=== PATIENT | male | born 2005 | race Caucasian/White ===

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

== ENCOUNTER 2023-04-09 01:22 | Emergency (ER) | payer MEDICAID, SELFPAY ==
[2023-04-09 01:23] VITALS: BP 132/84; PULSE 70; RESP 18; TEMP 36.6; O2SAT 99; BMI 22.1
[2023-04-09 01:28] VITALS: BP 132/23; PULSE 88; O2SAT 97
[2023-04-09 02:00] VITALS: BP 127/70
--- NOTE | 2023-04-09 02:28 | HMH.EDGENADL ---
Discharge Plan Disposition Patient Disposition: Home, Self-Care Prescriptions Prescriptions: No Action hydroxyzine pamoate [Vistaril] 25 mg capsule 25 mg PO TID PRN (Reason: .) melatonin 1 mg tablet 5 mg PO HS PRN (Reason: Sleep) montelukast [Singulair] 10 mg tablet 5 mg PO QPM anastrozole 1 mg tablet 1 mg PO ONCE HS clonidine HCl 0.2 mg tablet 0.2 mg PO DAILY olanzapine [Zyprexa] 20 mg tablet 20 mg PO BID levocetirizine 5 mg tablet 5 mg PO DAILY Patient Comments: TAKE 1 TABLET BY MOUTH ONCE DAILY Norditropin FlexPro 30 mg/3 mL (10 mg/mL) pen injector 4 mg SQ divalproex 500 mg tablet extended release 24 hr 500 mg PO Vyvanse 40 mg capsule 40 mg PO valacyclovir [Valtrex] 1 gram tablet 1,000 mg PO Q8H Qty: 30 1RF prednisone 20 mg tablet 20 mg PO BID Qty: 10 0RF Rx Instructions: administer with food or milk Referrals Follow up/Referrals: Migue Knott APRN [Primary Care Provider] - See instructions Activity Restrictions/Add. Instructions Additional Instructions/Restrictions: I think your symptoms are most consistent with cluster headaches. Please follow-up with your eye doctor and with your primary care provider. Please take Tylenol and ibuprofen as needed for pain. Please return to the emergency department if you develop any new or worsening symptoms or become concerned for your health. Clinical Impressions Clinical Impression: Cluster headache Qualifiers: Headache chronicity pattern: unspecified pattern Intractability: not intractable Qualified Code(s): G44.009 - Cluster headache syndrome, unspecified, not intractable Discharge ED Provider: John Paul Christianson General Adult HPI General Chief complaint: Eye Problems Stated complaint: left eye pain Time Seen by Provider: 04/09/23 01:27 Mode of Arrival: Ambulatory Source of Information: Patient and Parent(s) Limitations: No Limitations Description of Symptoms (Recalled from ER Triage Doc. by RN): Patient started having left eye pain as he was trying to go to sleep tonight. No known injury. History of Present Illness HPI narrative: 17-year-old male, history of Tourette's, ODD, ADHD presents with cute onset left eye/facial pain. He reports it happened approximately an hour prior to arrival. No reported injury. He reports his vision is normal. He reports that his eye was very teary and had a runny nose and had severe sharp pain at that time. He reports that he has had unilateral eye/face pain in the past that lasted for minutes to hours. No recent fever or illness. Related Data Home Medications Medication Instructions Recorded Confirmed hydroxyzine pamoate 25 mg capsule 25 mg PO TID PRN . 08/15/18 02/09/23 (Vistaril) melatonin 1 mg tablet 5 mg PO HS PRN Sleep 09/06/18 02/09/23 anastrozole 1 mg tablet 1 mg PO ONCE HS . 01/10/19 02/09/23 clonidine HCl 0.2 mg tablet 0.2 mg PO DAILY . 10/07/20 02/09/23 montelukast 10 mg tablet 5 mg PO QPM . 10/07/20 02/09/23 (Singulair) olanzapine 20 mg tablet (Zyprexa) 20 mg PO BID Depression 10/07/20 02/09/23 levocetirizine 5 mg tablet 5 mg PO DAILY 05/25/22 02/09/23 somatropin 30 mg/3 mL (10 mg/mL) 4 mg SQ 05/25/22 02/09/23 subcutaneous pen injector (Norditropin FlexPro) divalproex 500 mg tablet,extended 500 mg PO 09/20/22 02/09/23 release 24 hr lisdexamfetamine 40 mg capsule 40 mg PO 09/20/22 02/09/23 (Vyvanse) Previous Rx's Medication Instructions Recorded prednisone 20 mg tablet 20 mg PO BID #10 tabs 02/09/23 valacyclovir 1 gram tablet 1,000 mg PO Q8H #30 tabs 02/09/23 (Valtrex) Allergies Allergy/AdvReac Type Severity Reaction Status Date / Time zolpidem [From Ambien] AdvReac Intermediate Hallucinati Verified 02/09/23 13:02 [facility] Disclaimer: The information contained in this section may have been updated after the patient was seen, as this information can be updated by other users.
[2023-04-09 02:30] VITALS: BP 149/97; PULSE 77; O2SAT 99
[2023-04-09 03:00] VITALS: BP 136/59; PULSE 74; O2SAT 100
[2023-04-09 03:55] VITALS: BP 120/72; PULSE 66; RESP 16; TEMP 36.5; O2SAT 100
== END 2023-04-09 03:56 | disposition home or self-care (01) ==
PROVIDERS: Emergency Provider Emergency Medicine; PCP Nurse Practitioner Family
DX: H57.12 Ocular pain, left eye (principal); R51.9 Headache, unspecified
CPT/HCPCS: 96372; 99283

== ENCOUNTER 2023-07-12 10:28 | Emergency (ER) | payer MEDICAID, SELFPAY ==
[2023-07-12 10:35] VITALS: BP 109/81; PULSE 70; RESP 19; TEMP 36.9; O2SAT 100; BMI 25.4
--- NOTE | 2023-07-12 10:47 | ED_ITS ---
Discharge Plan Disposition Patient Disposition: Home, Self-Care Condition: Good Prescriptions Prescriptions: New ibuprofen [IBU] 400 mg tablet 400 mg PO Q6HP PRN (Reason: Moderate Pain) Qty: 30 0RF No Action hydroxyzine pamoate [Vistaril] 25 mg capsule 25 mg PO TID PRN (Reason: .) melatonin 1 mg tablet 5 mg PO HS PRN (Reason: Sleep) montelukast [Singulair] 10 mg tablet 5 mg PO QPM anastrozole 1 mg tablet 1 mg PO ONCE HS clonidine HCl 0.2 mg tablet 0.2 mg PO DAILY olanzapine [Zyprexa] 20 mg tablet 20 mg PO BID levocetirizine 5 mg tablet 5 mg PO DAILY Patient Comments: TAKE 1 TABLET BY MOUTH ONCE DAILY Norditropin FlexPro 30 mg/3 mL (10 mg/mL) pen injector 4 mg SQ divalproex 500 mg tablet extended release 24 hr 500 mg PO Vyvanse 40 mg capsule 40 mg PO valacyclovir [Valtrex] 1 gram tablet 1,000 mg PO Q8H Qty: 30 1RF prednisone 20 mg tablet 20 mg PO BID Qty: 10 0RF Rx Instructions: administer with food or milk Referrals Follow up/Referrals: Aguila Ulloa DO [Staff Physician] - See instructions Sampson Dorsey DO [Primary Care Provider] - See instructions Activity Restrictions/Add. Instructions Additional Instructions/Restrictions: Rest the extremity, Elevate the extremity as tolerated while you are resting. Take ibuprofen for pain. I sent in a prescription to your pharmacy. Follow up with Dr. Ulloa (orthopedics). I put in a referral but you need to call his office and schedule an appointment. Follow up with your regular doctor. GO TO THE ER FOR ANY WORSENING SYMPTOMS Clinical Impressions Clinical Impression: Left shoulder pain, Left shoulder strain, shoulder Stand Alone Forms Stand Alone Forms: Work/School Release Instructions Patient Instructions: How to Use a Sling, DI for Shoulder Pain, DI for AC Joint Separation, AC Joint Separation Discharge ED Provider: Fantasma Vail [facility] General Stated complaint: shoulder pain Time Seen by Provider: 07/12/23 10:46 History of Present Illness Provider Complaint: He states that he has had left shoulder and left upper arm pain for the past 1 week. He originally hurt last week by lifting a very heavy trash can. Since then he has had left shoulder pain. He states that raising the arm over his head makes the pain worse. He denies any other complaints or injuries. Related Data Home Medications Medication Instructions Recorded Confirmed hydroxyzine pamoate 25 mg capsule 25 mg PO TID PRN . 08/15/18 02/09/23 (Vistaril) melatonin 1 mg tablet 5 mg PO HS PRN Sleep 09/06/18 02/09/23 anastrozole 1 mg tablet 1 mg PO ONCE HS . 01/10/19 02/09/23 clonidine HCl 0.2 mg tablet 0.2 mg PO DAILY . 10/07/20 02/09/23 montelukast 10 mg tablet 5 mg PO QPM . 10/07/20 02/09/23 (Singulair) olanzapine 20 mg tablet (Zyprexa) 20 mg PO BID Depression 10/07/20 02/09/23 levocetirizine 5 mg tablet 5 mg PO DAILY 05/25/22 02/09/23 somatropin 30 mg/3 mL (10 mg/mL) 4 mg SQ 05/25/22 02/09/23 subcutaneous pen injector (Norditropin FlexPro) divalproex 500 mg tablet,extended 500 mg PO 09/20/22 02/09/23 release 24 hr lisdexamfetamine 40 mg capsule 40 mg PO 09/20/22 02/09/23 (Vyvanse) Previous Rx's Medication Instructions Recorded prednisone 20 mg tablet 20 mg PO BID #10 tabs 02/09/23 valacyclovir 1 gram tablet 1,000 mg PO Q8H #30 tabs 02/09/23 (Valtrex) ibuprofen 400 mg tablet (IBU) 400 mg PO Q6HP PRN Moderate Pain 07/12/23 #30 tabs Allergies Allergy/AdvReac Type Severity Reaction Status Date / Time zolpidem [From Ambien] AdvReac Intermediate Hallucinati Verified 07/12/23 10:57 [facility] Disclaimer: The information contained in this section may have been updated after the patient was seen, as this information can be updated by other users. Medical History ADHD (attention deficit hyperactivity disorder) Growth hormone deficiency Tourette's Surgical History History of eye surgery Family History Other Cancer Diabetes Heart attack Hypertension Thyroid disorder Social History Smoking Status: Never smoker second hand exposure: No alcohol intake: never substance use type: denies use current occupational status: other Travel in the last 8 weeks: None household members: family housing: house ROS Obtained: Yes All systems reviewed & no additional complaints except as documented Constitutional Constitutional: Denies chills, Denies fever(s) and Denies headache(s) Eyes Eyes: Denies eye discharge ENT Ears, Nose, Mouth, and Throat: Denies dizziness, Denies otalgia, Denies headache(s) and Denies sore throat Cardiovascular Cardiovascular: Denies chest pain Respiratory Respiratory: Denies shortness of breath, Denies chest congestion, Denies cough, Denies stridor and Denies wheezing Gastrointestinal Gastrointestingal: Denies nausea or vomiting Musculoskeletal Musculoskeletal: Reports as per HPI Integumentary/Breasts Skin/Breast: Denies rash Neurologic Neurologic: Denies dizziness, Denies headache(s) and Denies paresthesias Allergic/Immunologic Allergic/Immunologic: Denies wheezing Physical Exam General General appearance: alert and in no apparent distress Head Head exam: atraumatic, normocephalic and normal inspection Eye Eye exam: Present normal appearance, PERRL and EOMI ENT ENT exam: Present normal exam, normal oropharynx, mucous membranes moist, TM's normal bilaterally and normal external ear exam Neck Neck exam: Present normal inspection, full ROM and trachea midline; Absent meningismus or lymphadenopathy Chest Chest inspection: Present normal inspection and symmetric chest wall rise; Absent tenderness Respiratory Respiratory exam: Present normal lung sounds bilaterally; Absent respiratory distress Cardiovascular Cardiovascular exam: Present regular rate and normal rhythm; Absent JVD Abdominal Exam Abdominal exam: Present soft and normal bowel sounds; Absent distention, tenderness or guarding Extremities Exam Extremities exam: Present normal capillary refill; Absent calf tenderness Expanded Upper Extremity Exam Left: Shoulder exam: Present tenderness; Absent full ROM, swelling, abrasion, laceration, ecchymosis, deformity, crepitus, erythema or tenderness over AC joint Arm exam: Present normal inspection and full ROM; Absent tenderness Elbow exam: Present normal inspection and full ROM; Absent tenderness, pain w/ pronation/supination or tenderness over radial head Forearm/Wrist exam: Present normal inspection and full ROM; Absent tenderness Hand exam: Present normal inspection and full ROM; Absent tenderness Neuromotor exam: Normal wrist extension, thumb opposition, thumb IP flexion, thumb adduction and fingers 2-5 abduction Neurosensory exam: Normal radial nerve, ulnar nerve and median nerve Vascular exam: Normal capillary refill, radial pulse, ulnar pulse and brachial pulse Back Exam Back exam: Present normal inspection; Absent tenderness Neurological Exam Neurological exam: Present alert and oriented X3 Psychiatric Psychiatric exam: Present normal affect and normal mood Skin Skin exam: Present warm, dry, intact and normal color Lymphatic Lymphatic Findings: no adenopathy Medical Decision Making Medical Records Medical records reviewed: No I reviewed the patient's medical records. Wilian Inquiry Pt receiving controlled substance: No Orders (Tests/Meds): ORDERS Category Date Time Status XR shoulder RT min 2V Stat Exams 07/12/23 10:42 Ordered Radiology Data #1: Image(s): Shoulder Image Reviewed: Yes I reviewed the patient's radiology image and Yes I have reviewed radiologist's interpretation Preliminary Findings: Normal/NAD and No Fracture Seen Procedures Risk/Benefits of Procedure(s) Were Explained: Yes Orthopedic Splinting/Casting Injury #1: Side: left Upper Extremity Injury Location: shoulder and upper arm Upper Extremity Immobilizer: sling and applied by nurse/dr willams Post Cast/Splinting Neuro Status: intact and no change Post Cast/Splinting Vasc Status: intact and no change
--- NOTE | 2023-07-12 10:52 | XR_ITS ---
FINAL REPORT CLINICAL HISTORY: Left elbow pain COMPARISON: None FINDINGS: LEFT SHOULDER: 3 views of the left shoulder were obtained. There is no acute fracture or dislocation. The joint spaces are intact. There is no soft tissue abnormality. IMPRESSION: No acute fracture Reviewed, Interpreted and Dictated by Javier Reid III, MD Transcribed by Lupe Peck Authenticated and [facility]
[2023-07-12 11:29] VITALS: BP 109/81; PULSE 70; RESP 19; TEMP 36.9; O2SAT 100
== END 2023-07-12 11:29 | disposition home or self-care (01) ==
PROVIDERS: Emergency Provider Nurse Practitioner Family; PCP Internal Medicine
DX: S46.912A Strain of unspecified muscle, fascia and tendon at shoulder and upper arm level, left arm, initial encounter (principal); S43.002A Unspecified subluxation of left shoulder joint, initial encounter; M25.512 Pain in left shoulder; X50.0XXA Overexertion from strenuous movement or load, initial encounter
CPT/HCPCS: 73030; 99212; 99214; G0463

== ENCOUNTER 2023-08-11 13:50 | Outpatient (CLI) | payer MEDICAID, SELFPAY ==
--- NOTE | 2023-08-11 14:01 | MR_ITS ---
FINAL REPORT CLINICAL HISTORY: pain COMPARISON: None FINDINGS: Multiplanar MR imaging of the left shoulder was performed without contrast. The tendons of the rotator cuff are intact without evidence of rotator cuff tear. The a.c. joint is intact. No abnormal fluid is seen in the subacromial/subdeltoid bursa. The glenoid labrum is intact. The long head of the biceps tendon is intact. No significant glenohumeral joint effusion is seen. There is no evidence of fracture or dislocation. The musculature is intact. There is no evidence of soft tissue mass. IMPRESSION: Unremarkable shoulder without evidence of rotator cuff tear or labral tear. Reviewed, Interpreted and Dictated by Javier Reid III, MD Transcribed by Lillie Hatfield Authenticated and [facility]
== END 2023-08-11 23:59 ==
LOC: RAD 13:52
PROVIDERS: PCP Nurse Practitioner Family; Visit Provider Orthopaedic Surgery
DX: S46.912A Strain of unspecified muscle, fascia and tendon at shoulder and upper arm level, left arm, initial encounter (principal)
CPT/HCPCS: 73221

== ENCOUNTER 2023-08-12 12:15 | Emergency (ER) | payer MEDICAID, SELFPAY ==
[2023-08-12 12:17] VITALS: BP 142/69; PULSE 89; RESP 15; TEMP 36.7; O2SAT 99; BMI 23.9
--- NOTE | 2023-08-12 12:19 | HMH.EDGENADL ---
Discharge Plan Disposition Patient Disposition: Home, Self-Care Condition: Good Prescriptions Prescriptions: No Action hydroxyzine pamoate [Vistaril] 25 mg capsule 25 mg PO TID PRN (Reason: .) melatonin 1 mg tablet 5 mg PO HS PRN (Reason: Sleep) montelukast [Singulair] 10 mg tablet 5 mg PO QPM anastrozole 1 mg tablet 1 mg PO ONCE HS clonidine HCl 0.2 mg tablet 0.2 mg PO DAILY olanzapine [Zyprexa] 20 mg tablet 20 mg PO BID levocetirizine 5 mg tablet 5 mg PO DAILY Patient Comments: TAKE 1 TABLET BY MOUTH ONCE DAILY Norditropin FlexPro 30 mg/3 mL (10 mg/mL) pen injector 4 mg SQ divalproex 500 mg tablet extended release 24 hr 500 mg PO Vyvanse 40 mg capsule 40 mg PO diazepam [Valium] 10 mg tablet 10 mg PO ONCE Qty: 1 0RF Rx Instructions: take one hour prior to MRI ibuprofen [IBU] 400 mg tablet 400 mg PO Q6HP PRN (Reason: Moderate Pain) Qty: 30 0RF Referrals Follow up/Referrals: Amelie Fermin PA [Primary Care Provider] - See instructions Activity Restrictions/Add. Instructions Additional Instructions/Restrictions: Please return to the emergency department if you experience any new or worsening symptoms. Clinical Impressions Clinical Impression: Amnesia (retrograde) Stand Alone Forms Stand Alone Forms: Work/School Release Discharge ED Provider: Sp [facility] Adult HPI General Chief complaint: Recheck/Abnormal Lab/Rx Stated complaint: confusion Time Seen by Provider: 08/12/23 12:19 History of Present Illness HPI narrative: Patient presents with retrograde amnesia following administration of benzodiazepine for MRI within the past 24 hours, patient reports he has recollection of the year 2011 but scant memory since then. He denies any pain at this time. He states he can recall some memories from high school, does know the president, and denies any auditory or visual hallucinations. He has never received this medication before, he has never exhibited similar symptoms before. No previous therapies. Patient's symptoms are acute in onset however gradually improving. Patient has not exhibited any erratic behavior or evidence of risk to himself or other people per mother. He lives with mother and has remained in her care. Please note that above description of symptoms, in this electronic medical record under categorization of recalled from ER triage doctor by RN are reflective of an initial nursing assessment, however, is not reflective of my full history and physical exam that was personally taken and clarified. Consequentially, this preceding description of symptoms, which may include the patient's categorized chief complaint in the EMR, do not reflect my personal clinical impression, and the ultimate description of history of present illness and patient stated complaints should be deferred to this section of the note. Unless stated otherwise or congruent with this section of the note, additional signs, symptoms, or incongruence should be interpreted as inaccurate with my clinical impression. Related Data Home Medications Medication Instructions Recorded Confirmed hydroxyzine pamoate 25 mg capsule 25 mg PO TID PRN . 08/15/18 07/20/23 (Vistaril) melatonin 1 mg tablet 5 mg PO HS PRN Sleep 09/06/18 07/20/23 anastrozole 1 mg tablet 1 mg PO ONCE HS . 01/10/19 07/20/23 clonidine HCl 0.2 mg tablet 0.2 mg PO DAILY . 10/07/20 07/20/23 montelukast 10 mg tablet 5 mg PO QPM . 10/07/20 07/20/23 (Singulair) olanzapine 20 mg tablet (Zyprexa) 20 mg PO BID Depression 10/07/20 07/20/23 levocetirizine 5 mg tablet 5 mg PO DAILY 05/25/22 07/20/23 somatropin 30 mg/3 mL (10 mg/mL) 4 mg SQ 05/25/22 07/20/23 subcutaneous pen injector (Norditropin FlexPro) divalproex 500 mg tablet,extended 500 mg PO 09/20/22 07/20/23 release 24 hr lisdexamfetamine 40 mg capsule 40 mg PO 09/20/22 07/20/23 (Vyvanse) Previous Rx's Medication Instructions Recorded ibuprofen 400 mg tablet (IBU) 400 mg PO Q6HP PRN Moderate Pain 07/12/23 #30 tabs diazepam 10 mg tablet (Valium) 10 mg PO ONCE MRI #1 tab 08/10/23 Allergies Allergy/AdvReac Type Severity Reaction Status Date / Time zolpidem [From Ambien] AdvReac Intermediate Hallucinati Verified 07/20/23 10:23 [facility] Disclaimer: The information contained in this section may have been updated after the patient was seen, as this information can be updated by other users. Medical History ADHD (attention deficit hyperactivity disorder) Growth hormone deficiency Tourette's Surgical History History of eye surgery Family History Other Cancer Diabetes Heart attack Hypertension Thyroid disorder Social History Smoking Status: Never smoker second hand exposure: No alcohol intake: never substance use type: denies use current occupational status: other Travel in the last 8 weeks: None household members: family housing: house ROS Obtained: Yes Systems reviewed as appropriate & no additional complaints except as documented As per HPI Physical Exam General General appearance: alert and in no apparent distress Head Head exam: atraumatic and normocephalic Eye Eye exam: Present normal appearance Neck Neck exam: Present normal inspection Chest Chest inspection: Present normal inspection and symmetric chest wall rise Respiratory Respiratory exam: Present normal lung sounds bilaterally; Absent respiratory distress Cardiovascular Cardiovascular exam: Present regular rate and normal rhythm Abdominal Exam Abdominal exam: Present soft Neurological Exam Neurological exam: Present alert and oriented X3 Expanded Psychiatric Exam Expanded psych exam: Absent paranoid, catatonic or perseverating Comment: Frequent outburst, oriented to self, place, able to describe president, current, as well as state multiple memories from high school, friends from high school, details related to his job, no impulsivity of behavior or evidence of vicki or psychosis Skin Skin exam: Present warm and dry Medical Decision Making Medical Records Medical records reviewed: Yes I reviewed the patient's medical records. Wilian Inquiry Pt receiving controlled substance: No Vital Signs: 08/12/23 12:17 08/12/23 13:01 08/12/23 13:04 Temperature 98.0 F Temperature Source Oral Pulse Rate 86 Pulse Rate [Left Radial] 89 Respiratory Rate 15 20 Blood Pressure 139/80 Blood Pressure [Right Arm] 142/69 H 139/80 Blood Pressure Mean 88 Blood Pressure Mean [Right Arm] 93 99 Blood Pressure Source Blood Pressure Position 02 Sat by Pulse Oximetry 99 99 Oxygen Delivery Method 08/12/23 13:30 08/12/23 16:19 08/12/23 16:36 Temperature 98 F Temperature Source Pulse Rate 76 67 67 Pulse Rate [Left Radial] Respiratory Rate 20 20 Blood Pressure 131/88 115/76 115/76 Blood Pressure [Right Arm] Blood Pressure Mean 93 86 Blood Pressure Mean [Right Arm] Blood Pressure Source Automatic Cuff Blood Pressure Position Sitting 02 Sat by Pulse Oximetry 99 98 Oxygen Delivery Method Room Air Lab Data Lab Results 08/12/23 13:39: Urine Opiates Screen Negative, Urine Methadone Screen Negative, Ur Barbituates Screen Negative, Ur Phencyclidine Scrn Negative, Ur Amphetamines Screen Negative, U Benzodiazepines Scrn Positive H, Urine Cocaine Screen Negative, U Marijuana (THC) Screen Negative 08/12/23 13:47: WBC 7.8, RBC 5.15, Hgb 15.5, Hct 46.6, MCV 90.6, MCH 30.2, MCHC 33.3, RDW 13.6, Plt Count 299, MPV 8.2, Neut % (Auto) 63.9, Lymph % (Auto) 22.8, [place] % (Auto) 6.3, Eos % (Auto) 5.7, Baso % (Auto) 1.3, Neut # (Auto) 5.0, Lymph # (Auto) 1.8, Child[place] # (Auto) 0.5, Eos # (Auto) 0.4, Baso # (Auto) 0.1, Sodium 139, Potassium 3.9, Chloride 109 H, Carbon Dioxide 24, Anion Gap 9.9, BUN 15, Creatinine 0.60 L, Estimated Creat Clear 170, Estimated GFR 172, Est GFR ( Amer) 208, Glucose 90, Calcium 9.4, Total Bilirubin 1.6 H, AST 26, ALT 18, Alkaline Phosphatase 175 H, Total Protein 7.4, Albumin 4.5, Globulin 2.9, Albumin/Globulin Ratio 1.6, TSH 0.60, Free T4 0.95, Salicylates < 1.0 L, Acetaminophen < 10 L, Plasma/Serum Alcohol < 10 08/12/23 13:47 08/12/23 13:47 Orders (Tests/Meds): ORDERS Category Date Time Status Acetaminophen Stat Lab 08/12/23 13:47 Completed CBC w/Auto Diff [Complete Blood Count Auto Diff] Stat Lab 08/12/23 13:47 Completed CMP [Comprehensive Metabolic Panel] Stat Lab 08/12/23 13:47 Completed Drug Screen,Urine Stat Lab 08/12/23 13:39 Completed Ethanol [Ethyl Alcohol] Stat Lab 08/12/23 13:47 Completed Free T4 (Free Thyroxine) Stat Lab 08/12/23 13:47 Completed Salicylate Stat Lab 08/12/23 13:47 Completed TSH [Thyroid Stimulating Hormone] Stat Lab 08/12/23 13:47 Completed Medical Decision Narrative: Patient with history and exam per above presenting for evaluation of confusion following benzodiazepine administration approximately 24 hours prior to arrival Diagnoses considered include medication induced retrograde amnesia, electrolyte abnormality, congestion, malingering, minimal evidence to suggest acute psychosis or vicki or delusion ED workup and treatment included: ORDERS Category Date Time Status Acetaminophen Stat Lab 08/12/23 13:47 Completed CBC w/Auto Diff [Complete Blood Count Auto Diff] Stat Lab 08/12/23 13:47 Completed CMP [Comprehensive Metabolic Panel] Stat Lab 08/12/23 13:47 Completed Drug Screen,Urine Stat Lab 08/12/23 13:39 Completed Ethanol [Ethyl Alcohol] Stat Lab 08/12/23 13:47 Completed Free T4 (Free Thyroxine) Stat Lab 08/12/23 13:47 Completed Salicylate Stat Lab 08/12/23 13:47 Completed TSH [Thyroid Stimulating Hormone] Stat Lab 08/12/23 13:47 Completed Labs were independently interpreted by me, significant for no acute findings My clinical impression at this time is most consistent with medication induced retrograde amnesia. Upon reassessment patient has improvement of symptoms, mother expresses comfort with discharge at this time and we will observe patient until symptoms have resolved completely I discussed my clinical impression with patient and answered all questions. At this time, the evidence for any other entities in the differential is insufficient to warrant any further testing or ED observation. This was explained to the patient. The patient was advised that persistent or worsening symptoms require further evaluation. I confirmed the patient's understanding of this discussion. Critical Care Critical Care Time Critical Care Time: No
[2023-08-12 13:01] VITALS: BP 139/80; PULSE 86; RESP 20; O2SAT 99
[2023-08-12 13:04] VITALS: BP 139/80
[2023-08-12 13:30] VITALS: BP 131/88; PULSE 76; O2SAT 99
--- NOTE | 2023-08-12 13:37 | PC.NURSE ---
pt ambulating to bathroom to provide urine sample.
[2023-08-12 13:59] LABS: Basophils # 0.1 K/mm3 (0-0.2); Basophils % 1.3 % (0.1-2.0); Eosinophils # 0.4 K/mm3 (0.0-0.4); Eosinophils % 5.7 % (0.1-12.0); Hematocrit 46.6 % (42.0-52.0); Hemoglobin 15.5 g/dL (14.1-18.0); Lymphocytes # 1.8 K/mm3 (0.7-4.5); Lymphocytes % 22.8 % (10-50); Mean Corpuscular HGB Conc 33.3 g/dL (31.8-35.4); Mean Corpuscular Hemoglobin 30.2 pg (27.0-31.2); Mean Corpuscular Volume 90.6 fl (80-94); Mean Platelet Volume 8.2 fl (7.4-10.4); Monocytes # 0.5 K/mm3 (0.1-1.0); Monocytes % 6.3 % (1.7-9.3); Neutrophils % 63.9 % (37.0-80.0); Platelet Count 299 K/mm3 (142-424); Red Blood Count 5.15 M/mm3 (4.60-6.20); Red Cell Distribution Width 13.6 % (11.5-17.5); White Blood Count 7.8 K/mm3 (4.5-13.0)
[2023-08-12 14:04] LABS: Amphetamine/Metha Screen,Urine Negative ng/ml (<1000); Barbiturates Screen,Urine Negative ng/ml (<200)
[2023-08-12 14:05] LABS: Benzodiazepines Screen,Urine Positive ng/ml (<200)
[2023-08-12 14:06] LABS: Cannabinoid Screen,Urine Negative ng/ml (<50); Cocaine Screen,Urine Negative ng/ml (<300)
[2023-08-12 14:07] LABS: Methadone Screen,Urine Negative ng/ml (<300)
[2023-08-12 14:08] LABS: Opiate Screen,Urine Negative ng/ml (<300); Phencyclidine Screen,Urine Negative ng/ml (<25)
[2023-08-12 14:17] LABS: Ethyl Alcohol < 10 mg/dl (0-10)
[2023-08-12 15:46] LABS: Chloride 109 mmol/L (98-107); Sodium 139 mmol/L (136-145)
[2023-08-12 15:47] LABS: Potassium 3.9 mmoL/L (3.5-5.1)
[2023-08-12 15:49] LABS: Alanine Aminotransferase 18 U/L (12-78); Alkaline Phosphatase 175 U/L (38-126); Anion Gap 9.9 mEq/L (5-15); Aspartate Amino Transferase 26 U/L (17-59); Bilirubin,Total 1.6 mg/dl (0.2-1.3); Blood Urea Nitrogen 15 mg/dl (9-20); Carbon Dioxide 24 mmol/L (22.0-30.0); Creatinine Clearance Estimated 170 mL/min (50-200); Estimated Glomerular Filt Rate 172 ml/min (>60); GFR (African American) 208 ML/MIN (>60)
[2023-08-12 15:50] LABS: Albumin Level 4.5 g/dl (3.5-5.0); Albumin/Globulin Ratio 1.6 (1.1-1.8); Calcium 9.4 mg/dl (8.4-10.2); Globulin 2.9 g/dL (1.3-3.2); Glucose 90 mg/dl (74-100); Total Protein,Serum 7.4 g/dl (6.3-8.2)
[2023-08-12 15:57] LABS: Acetaminophen < 10 ug/ml (10-30); Salicylate < 1.0 mg/dL (2.0-20.0)
[2023-08-12 16:07] LABS: Free T4 (Free Thyroxine) 0.95 ng/dl (0.78-2.19)
[2023-08-12 16:19] VITALS: BP 115/76; PULSE 67; RESP 20; O2SAT 98
[2023-08-12 16:36] VITALS: BP 115/76; PULSE 67; RESP 20; TEMP 36.6; O2SAT 98
== END 2023-08-12 16:36 | disposition home or self-care (01) ==
PROVIDERS: Emergency Provider Emergency Medicine; PCP Physician Assistant
DX: R41.2 Retrograde amnesia (principal); T42.4X5A Adverse effect of benzodiazepines, initial encounter
CPT/HCPCS: 80053; 80307; 80329; 84439; 84443; 85025; 99285

== ENCOUNTER 2023-11-10 19:20 | Emergency (ER) | payer MEDICAID, SELFPAY ==
--- NOTE | 2023-11-10 19:16 | ECG_ITS ---
APPROVED REPORT Exam: Resting ECG HR:98 bpm ECG Measurements Heart Rate 98 AXES IA 150 P 63 QRSd 101 QRS 93 QT 321 T 44 QTc 377 Conclusion SINUS RHYTHM BORDERLINE RIGHT AXIS DEVIATION [QRS AXIS > 90] BORDERLINE ECG UNCONFIRMED REPORT Electronically signed by : Fantasma Hopson, 11/10/2023 23:04:10
[2023-11-10 19:20] VITALS: BP 133/96; PULSE 98; RESP 18; TEMP 36.9; O2SAT 99; BMI 25.7
[2023-11-10 19:25] VITALS: PULSE 85
--- NOTE | 2023-11-10 19:46 | XR_ITS ---
PROCEDURE INFORMATION: Exam: XR Chest Exam date and time: 11/10/2023 7:47 PM Age: 18 years old Clinical indication: Dyspnea TECHNIQUE: Imaging protocol: Radiologic exam of the chest. Views: 1 view. COMPARISON: MR SHOULDER LT WO CON 11/08/2023 14:07 FINDINGS: Lungs: Unremarkable. No consolidation. Pleural spaces: Unremarkable. No pleural effusion. No pneumothorax. Heart/Mediastinum: Unremarkable. No cardiomegaly. Bones/joints: Unremarkable. IMPRESSION: No acute findings.
--- NOTE | 2023-11-10 19:46 | ED_ITS ---
Discharge Plan Disposition Patient Disposition: Home, Self-Care Prescriptions Prescriptions: No Action hydroxyzine pamoate [Vistaril] 25 mg capsule 25 mg PO TID PRN (Reason: .) melatonin 1 mg tablet 5 mg PO HS PRN (Reason: Sleep) montelukast [Singulair] 10 mg tablet 5 mg PO QPM anastrozole 1 mg tablet 1 mg PO ONCE HS clonidine HCl 0.2 mg tablet 0.2 mg PO DAILY olanzapine [Zyprexa] 20 mg tablet 20 mg PO BID levocetirizine 5 mg tablet 5 mg PO DAILY Patient Comments: TAKE 1 TABLET BY MOUTH ONCE DAILY Norditropin FlexPro 30 mg/3 mL (10 mg/mL) pen injector 4 mg SQ divalproex 500 mg tablet extended release 24 hr 500 mg PO Vyvanse 40 mg capsule 40 mg PO diazepam [Valium] 10 mg tablet 10 mg PO ONCE Qty: 1 0RF Rx Instructions: take one hour prior to MRI ibuprofen [IBU] 400 mg tablet 400 mg PO Q6HP PRN (Reason: Moderate Pain) Qty: 30 0RF Activity Restrictions/Add. Instructions Additional Instructions/Restrictions: No emergent cardiopulmonary condition was identified today. Please return with any significant worsening of symptoms otherwise follow-up with primary care doctor as needed. Clinical Impressions Clinical Impression: Atypical chest pain Discharge ED Provider: Halima Hopson General Chief Complaint: Chest Pain Stated Complaint: chest pain Time Seen by Provider: 11/10/23 19:38 Mode of Arrival: EMS Source of Information: Patient and EMS Limitations: No Limitations Description of Symptoms (Recalled from ER Triage Doc. 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 Staff reported to EMS that he had a brief loss of conciousness of 7-10 seconds. After which time he had complete resolution of symptoms. Patient states that he had one milder episode of squeezing chest pain earlier in the day as well. He reports that for the previous 2 days he was sick with nausea, vomiting, and diarrhea, which he states he felt better from today. He has had episodes of chest pain in the past, but never followed up with a doctor for these episodes. History of Present Illness HPI narrative: Patient is a 18-year-old male with a history of ADHD oppositional defiant disorder presents today with chest pain. States he was working at [employer] [facility] [employer] when he started having some chest squeezing. This lasted about 5 minutes he had 3-4 more these episodes. He denies having any shortness of breath to me denies diaphoresis exertional component to this or radiation. No history of any heart or lung disorder that he is aware of. He is currently asymptomatic. States that this has occurred several times in the past over the last several years. Related Data Home Medications Medication Instructions Recorded Confirmed hydroxyzine pamoate 25 mg capsule 25 mg PO TID PRN . 08/15/18 11/02/23 (Vistaril) melatonin 1 mg tablet 5 mg PO HS PRN Sleep 09/06/18 11/02/23 anastrozole 1 mg tablet 1 mg PO ONCE HS . 01/10/19 11/02/23 clonidine HCl 0.2 mg tablet 0.2 mg PO DAILY . 10/07/20 11/02/23 montelukast 10 mg tablet 5 mg PO QPM . 10/07/20 11/02/23 (Singulair) olanzapine 20 mg tablet (Zyprexa) 20 mg PO BID Depression 10/07/20 11/02/23 levocetirizine 5 mg tablet 5 mg PO DAILY 05/25/22 11/02/23 somatropin 30 mg/3 mL (10 mg/mL) 4 mg SQ 05/25/22 11/02/23 subcutaneous pen injector (Norditropin FlexPro) divalproex 500 mg tablet,extended 500 mg PO 09/20/22 11/02/23 release 24 hr lisdexamfetamine 40 mg capsule 40 mg PO 09/20/22 11/02/23 (Vyvanse) Previous Rx's Medication Instructions Recorded ibuprofen 400 mg tablet (IBU) 400 mg PO Q6HP PRN Moderate Pain 07/12/23 #30 tabs diazepam 10 mg tablet (Valium) 10 mg PO ONCE MRI #1 tab 08/10/23 Allergies Allergy/AdvReac Type Severity Reaction Status Date / Time zolpidem [From Ambien] AdvReac Intermediate Hallucinati Verified 11/02/23 10:20 [facility] Disclaimer: The information contained in this section may have been updated after the patient was seen, as this information can be updated by other users. Medical History Growth hormone deficiency Tourette's ADHD (attention deficit hyperactivity disorder) Surgical History History of eye surgery Family History Other Cancer Diabetes Heart attack Hypertension Thyroid disorder Social History Smoking Status: Never smoker second hand exposure: No alcohol intake: never substance use type: denies use current occupational status: other Travel in the last 8 weeks: None household members: family housing: house ROS Obtained: Yes All systems reviewed & no additional complaints except as documented Physical Exam General General appearance: alert and in no apparent distress Respiratory Respiratory exam: Present normal lung sounds bilaterally; Absent respiratory distress Cardiovascular Cardiovascular exam: Present regular rate and normal rhythm Abdominal Exam Abdominal exam: Present soft; Absent distention or tenderness Neurological Exam Neurological exam: Present alert and oriented X3 HEART Score HEART Score HEART Score assessment performed?: Yes History (anamnesis): Slightly suspicious ECG: Normal Age: <45 years Risk factors: No known risk factors Troponin: </= normal limit HEART Score: 0 Critical Care Critical Care Time Critical Care Time: No Medical Decision Making Wilian Inquiry Pt receiving controlled substance: No Vital Signs Vital Signs: 11/10/23 19:20 11/10/23 19:25 Temperature 98.5 F Temperature Source Oral Pulse Rate 85 Pulse Rate [Left Radial] 98 H Respiratory Rate 18 Blood Pressure [Right Arm] 133/96 H Blood Pressure Mean [Right Arm] 108 Blood Pressure Source [Right Arm] Automatic Cuff Blood Pressure Position [Right Arm] Sitting 02 Sat by Pulse Oximetry 99 Oxygen Delivery Method Room Air Lab Data Lab results reviewed: Yes I reviewed the patient's lab results. Labs: Lab Results 11/10/23 19:22: WBC 8.7, RBC 5.24, Hgb 15.7, Hct 47.2, MCV 90.1, MCH 29.9, MCHC 33.2, RDW 14.1, Plt Count 264, MPV 8.3, Neut % (Auto) 67.9, Lymph % (Auto) 23.7, [place] % (Auto) 4.7, Eos % (Auto) 2.3, Baso % (Auto) 1.4, Neut # (Auto) 5.9, Lymph # (Auto) 2.1, [place] # (Auto) 0.4, Eos # (Auto) 0.2, Baso # (Auto) 0.1, Sodium 139, Potassium 4.2, Chloride 109 H, Carbon Dioxide 19 L, Anion Gap 15.2 H, BUN 11, Creatinine 0.70, Estimated Creat Clear 157, Estimated GFR 144, Est GFR ( Amer) 174, Glucose 110 H, Calcium 9.6, Total Bilirubin 1.2, AST 37, ALT 17, Alkaline Phosphatase 165 H, Troponin I < 0.01, Total Protein 7.8, Albumin 4.8, Globulin 3.0, Albumin/Globulin Ratio 1.6, Lipase 35 11/10/23 19:22 11/10/23 19:22 Response Orders (Tests/Meds): ORDERS Category Date Time Status CXR --portable [XR chest portable] Stat Exams 11/10/23 19:46 Taken CBC w/Auto Diff [Complete Blood Count Auto Diff] Stat Lab 11/10/23 19:22 Completed CMP [Comprehensive Metabolic Panel] Stat Lab 11/10/23 19:22 Completed Lipase Stat Lab 11/10/23 19:22 Completed Trop I [Troponin I] Stat Lab 11/10/23 19:22 Completed Troponin I Q3H Lab 11/10/23 23:00 Ordered Troponin I Q3H Lab 11/11/23 02:00 Ordered ECG Data Tracing #1: Attestation: I reviewed this ECG and interpreted as documented below: ECG Narrative: Ventricular rate 98 sinus rhythm borderline axis no acute ischemic changes noted no significant conduction abnormalities overall normal EKG MDM Narrative Medical Decision Narrative: Well-appearing nontoxic 18-year-old male presenting today with intermittent chest squeezing. He is asymptomatic at the moment PERC negative on my assessment is not consistent with a pulmonary embolism. He does not have any signs or symptoms from my perspective of acute coronary syndrome. Will get a single troponin basic labs chest x-ray EKG was performed which is unremarkable. Overall this is not consistent with acute cardiopulmonary emergency and he will be stable for outpatient follow-up if his workup is negative. Chest x-ray performed to person interpreted which shows no acute cardiopulmonary emergency Labs are unremarkable aside from nonspecific anion gap elevation mildly depressed, dioxide. Possible patient is mildly dehydrated but this is nonspecific. Very well-appearing on serial assessments continues to be asymptomatic I am not concerned about acute coronary syndrome no indication for getting serial troponins at this point. Patient is discharged in stable condition with follow-up instructions to follow-up with primary care doctor.
[2023-11-10 19:54] LABS: Basophils # 0.1 K/mm3 (0-0.2); Basophils % 1.4 % (0.1-2.0); Eosinophils # 0.2 K/mm3 (0.0-0.4); Eosinophils % 2.3 % (0.1-12.0); Hematocrit 47.2 % (42.0-52.0); Hemoglobin 15.7 g/dL (14.1-18.0); Lymphocytes # 2.1 K/mm3 (0.7-4.5); Lymphocytes % 23.7 % (10-50); Mean Corpuscular HGB Conc 33.2 g/dL (31.8-35.4); Mean Corpuscular Hemoglobin 29.9 pg (27.0-31.2); Mean Corpuscular Volume 90.1 fl (80-94); Mean Platelet Volume 8.3 fl (7.4-10.4); Monocytes # 0.4 K/mm3 (0.1-1.0); Monocytes % 4.7 % (1.7-9.3); Neutrophils # 5.9 K/mm3 (1.8-7.8); Neutrophils % 67.9 % (37.0-80.0); Platelet Count 264 K/mm3 (142-424); Red Blood Count 5.24 M/mm3 (4.60-6.20); Red Cell Distribution Width 14.1 % (11.5-17.5); White Blood Count 8.7 K/mm3 (4.5-13.0)
[2023-11-10 20:01] LABS: Chloride 109 mmol/L (98-107); Potassium 4.2 mmoL/L (3.5-5.1); Sodium 139 mmol/L (136-145)
[2023-11-10 20:03] LABS: Blood Urea Nitrogen 11 mg/dl (9-20); Creatinine Clearance Estimated 157 mL/min (50-200); Estimated Glomerular Filt Rate 144 ml/min (>60); GFR (African American) 174 ML/MIN (>60)
[2023-11-10 20:04] LABS: Alanine Aminotransferase 17 U/L (12-78); Albumin Level 4.8 g/dl (3.5-5.0); Albumin/Globulin Ratio 1.6 (1.1-1.8); Alkaline Phosphatase 165 U/L (38-126); Anion Gap 15.2 mEq/L (5-15); Aspartate Amino Transferase 37 U/L (17-59); Bilirubin,Total 1.2 mg/dl (0.2-1.3); Calcium 9.6 mg/dl (8.4-10.2); Carbon Dioxide 19 mmol/L (22.0-30.0); Glucose 110 mg/dl (74-100); Lipase 35 U/L (23-300); Total Protein,Serum 7.8 g/dl (6.3-8.2)
[2023-11-10 20:22] LABS: Troponin I < 0.01 ng/ml (0.00-0.034)
[2023-11-10 20:30] VITALS: BP 124/65; PULSE 86; RESP 17; TEMP 36.9; O2SAT 98
== END 2023-11-10 20:35 | disposition home or self-care (01) ==
PROVIDERS: Emergency Provider Student in an Organized Health Care Education/Training Program; PCP Nurse Practitioner Family
DX: R07.89 Other chest pain (principal)
CPT/HCPCS: 71045; 80053; 83690; 84484; 85025; 93005; 99284

== ENCOUNTER 2023-11-23 14:00 | Outpatient (RCR) | payer MEDICAID, SELFPAY ==
--- NOTE | 2023-09-18 15:21 | HMH.OTOPEV ---
OT Inpatient Evaluation Rehab OT Outpatient Eval Start: 09/18/23 14:26 Freq: Status: Active Protocol: Document 09/18/23 14:26 RMKATELYNN (Rec: 09/18/23 15:21 [id number]) E-signed By Case Carr, OT Outpatient Therapy Subjective History Subjective History Pt is a 18 year old male who reports to therapy for initial evaluation to left shoulder. Pt injured left shoulder at work ~1 month ago. He does not recall a specific injury, but began having pain. Pt has had a MRI with the following finding: Unremarkable shoulder without evidence of rotator cuff tear or labral tear. Pt does demonstrate with decreased AROM and strength at left shoulder. Pt is right hand dominant. He is continuing to work with restrictions at this time. He returns to ortho in ~6 weeks for re-evaluation. Pt will continue to be seen twice a week in order to address left shoulder deficits. New diagnosis of cancer in past 12 No months? Chief Complaint Pain,Stiff,Weakness Symptom Type Ache,Stabbing Symptoms Relieved By Rest/Positioning,Prescription Meds Symptoms Aggravated By Physical Activity,Lifting Prior Functional Limitations None Current Functional Limitations Reaching,Lifting,Housework, Recreation Activity Symptom Description Constant but Variable Level of pain today (0-10) 4 Pain scale - at its best (0-10) 3 Pain scale - at its worst (0-10) 6 Shoulder/Elbow Eval Shoulder Objective Measurements Shoulder ROM Left Shoulder Abduction Active Range of 105 degrees Motion (degrees) Shoulder Flexion Active Range of Motion 132 degrees (degrees) Query Text: Shoulder External Rotation Active Range 65 degrees of Motion (degrees) Shoulder Internal Rotation Active Range 40 degrees of Motion (degrees) Shoulder MMT Shoulder Abduction Strength Grade 3 Fair Shoulder Flexion Strength Grade 3 Fair Shoulder External Rotation Strength 3 Fair Grade Shoulder Internal Rotation Strength 3 Fair Grade Shoulder Strength Patient Testing Sitting Position Shoulder Special Tests impingement sign present shoulder exam left standard Shoulder Empty Can (Supraspinatus) Test Positive Left Shoulder [place] Impingement Positive Left Test Shoulder [place] Test Positive Left Elbow Objective Measurements QuickDASH Activities Please rate your ability to do the following activities in the last week by selecting the number below the appropriate response. 1. Open a tight or new jar. Mild difficulty 2. Do heavy real estate associate (e.g., wash Moderate difficulty linder, floors). 3. Carry a shopping bag or briefcase. Moderate difficulty 4. Wash your back. No difficulty 5. Use a knife to cut food. No difficulty 6. Recreational activities in which you Moderate difficulty take some force or impact through your arm, shoulder, or hand (e.g., golf, hammering, tennis, etc.). 7. During the past week, to what extent Moderately has your arm, shoulder or hand problem interfered with your normal social activities with family, friends, neighbors or groups? 8. During the past week, were you Moderately limited limited in your work or other regular daily activites as a result of your arm, shoulder or hand problem? 9. Arm, shoulder or hand pain. Moderate 10. Tingling (pins and needles) in your None arm, shoulder or hand. 11. During the past week, how much Mild difficulty difficulty have you had sleeping because of the pain in your arm, shoulder or hand? Quick DASH 25 Work Module (optional) The following questions ask about the impact of your arm, shoulder or hand problem on your ability to work (including homemaking if that is your main work role). 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 Yes 1. Using your usual technique for your Mild difficulty work? 2. Doing your usual work because of arm, Moderate difficulty shoulder or hand pain? 3. Doing your work as well as you would Moderate difficulty like? 4. Spending your usual amount of time Mild difficulty doing your work? Quick Dash Work Module Score 10 OT Outpatient Assessment Impairments Problems/Impairments Palpation Tenderness,Impaired Range of Motion,Impaired Strength,Impaired Endurance, Impaired Lifting,Impaired Household Care,Impaired Recreational Activities, Impaired Work Activities, Subjective C/O Pain Prognosis Rehab Potential Good Clinical Impression Consistent with Diagnosis Yes Short Term Goals Number of Weeks 3 Increase Range of Motion Yes: Flex: 140 Abd: 120 ER: 75 IR: 60 Increase Strength Yes: 3+,4-/5 throughout left shoulder Increase Endurance Yes: Pt will tolerate L shoulder exercises for ~20 min prior to rest. Decrease Subjective C/O Pain Yes: 4/10 at worst Patient to be Ind w/ HEP Yes: AROM/AAROM exercises Improve Quick Dash Score Yes: Activities: 20 less Chief Science Officer Goals Number of Weeks 6 Increase Range of Motion Yes: Flex: 150 Abd: 140 ER: 80 IR: 70 Increase Strength Yes: 4,5/5 throughout left shoulder Increase Endurance Yes: Pt will tolerate L shoulder exercises for ~30 minutes piror to rest. Decrease Subjective C/O Pain Yes: 3/10 at worst Patient to be Ind w/ Advanced HEP Yes: Advanced strengthening exericses Improve Quick Dash Score Yes: Activities: 15 or below Outpatient Therapy Plan of Care Treatment Plan May Include Therapeutic Exercise Including Home Yes Exercise Program Manual Therapy Techniques Yes Neuromuscular Re-education Yes Therapeutic Activities to Return to Yes Previous Functional/Work Level ADL/Self Care Education Yes Dry Needling Yes Thermal Modalities Yes Electrical Stimulation Yes Ultrasound/Phonophoresis Yes Iontophoresis Yes Orthotics/Bracing/Splinting Yes Massage Yes Eval/Re-Eval Yes Frequency Times per week 2 Duration Number of Weeks 6 Addendums This patient is a candidate for social No or vocational rehab? Patient/Guardian verbally acknowledges Yes understanding of treatment program and consents to further treatment? Patient/Guardian verbally acknowledges Yes understanding of diagnosis, prognosis and goals for treatment? Eval Complexity OT Charge 79742 - Moderate Complexity PHYSICIAN CERTIFICATION: I certify the specified therapy services for Josemanuel Henning are required, authorized, and reviewed every 30 days.
--- NOTE | 2023-10-25 15:58 | HMH.RHREAS ---
Rehab Reassessment Rehab OP Re-assessment Start: 09/18/23 14:06 Freq: Status: Active Protocol: Document 10/25/23 15:02 RMSRIHALMiguelina (Rec: 10/25/23 15:58 RMARSHALL Laptop) E-signed By Case Carr OT Rehab Re-assessment Subjective Subjective Worse lately. Objective Objective Notes Pt continues to be seen twice a week to address left shoulder deficits. Each session, pt engages in AROM, AAROM, and strengthening exercises to left shoulder. Pt also receives PROM manual stretching to left shoulder in all planes: flexion, abduction, ER, and IR. Modalities are provided to decrease pain/inflammation. Assessment Progress Assessment Slower Than Expected Assessment Notes Pt reports recently he has been having more pain at left shoulder since this past Monday. Pt reports he used a weed-eater which he believes has caused an increase in pain. While weed-eating, pt was required to lift different objects to move out of the way. He is now rating his worst pain reaching a 7/10, with a constant 6/10. Pt is unsure when he returns to ortho for a re-evaluation. Pt 's AROM at left shoulder has declined since initial evaluation. Therapist recommends pt return to ortho for re-evaluation due to a decline in progress. Pt reports he felt his shoulder had improved some until he used the weed-eater this past weekend. Current L shoulder AROM: Flex: 110 degrees Abd: 105 degrees ER: 30 degrees IR: 26 degrees Patient goals [address], 3, and 5 Goals Not Met See below Revised Goals ST, 4, and 6 LT-6 Plan Plan Continue with OT plan of care at this time. Therapist recommends pt return to doctor due to left shoulder decline. Frequency of Therapy 2x's a week Duration of therapy 4 more weeks Time and Billing Re-Eval Time 10 Re-Eval Billing Units 1 PHYSICIAN CERTIFICATION: I certify the specified therapy services for Josemanuel Henning are required, authorized, and reviewed every 30 days.
--- NOTE | 2023-11-20 14:34 | HMH.RHREAS ---
Rehab Reassessment Rehab OP Re-assessment Start: 09/18/23 14:06 Freq: Status: Active Protocol: Document 11/20/23 14:18 YANET (Rec: 11/20/23 14:34 RMFRANKIL [id number]) E-signed By Case Carr OT QuickDASH Activities Please rate your ability to do the following activities in the last week by selecting the number below the appropriate response. 1. Open a tight or new jar. No difficulty 2. Do heavy bakery pastry internship (e.g., wash No difficulty linder, floors). 3. Carry a shopping bag or briefcase. Mild difficulty 4. Wash your back. Moderate difficulty 5. Use a knife to cut food. No difficulty 6. Recreational activities in which you Severe difficulty take some force or impact through your arm, shoulder, or hand (e.g., golf, hammering, tennis, etc.). 7. During the past week, to what extent Slightly has your arm, shoulder or hand problem interfered with your normal social activities with family, friends, neighbors or groups? 8. During the past week, were you Moderately limited limited in your work or other regular daily activites as a result of your arm, shoulder or hand problem? 9. Arm, shoulder or hand pain. Moderate 10. Tingling (pins and needles) in your None arm, shoulder or hand. 11. During the past week, how much Mild difficulty difficulty have you had sleeping because of the pain in your arm, shoulder or hand? Quick DASH 23 Rehab Re-assessment Subjective Subjective It's doing okay, but not as good as I want it to be. Objective Objective Notes Pt continues to be seen twice a week to address left shoulder deficits. Each session, pt engages in AROM, AAROM, and strengthening exercises to left shoulder. Pt also receives PROM manual stretching to left shoulder in all planes: flexion, abduction, ER, and IR. Modalities are provided to decrease pain/inflammation. Assessment Progress Assessment Slower Than Expected Assessment Notes Pt consistent about attending therapy sessions. However, pt demonstrates slight improvement with AROM since last re-assessment. Pt returned to ortho at the end of September; ortho requested 6 more weeks of therapy. He returns to ortho in November. He continues rating his worst pain at 7/10, with a pain at constant 5/10 even at rest. Current L shoulder AROM: Flex: 130 degrees Abd: 118 degrees ER: 72 degrees IR: 55 degrees Patient goals met [address], 3, and 5 LT and 5 Goals Not Met See below Revised Goals ST, 4, and 6 LT, 2, 4, and 6 Plan Plan Continue with OT plan of care at this time. Frequency of Therapy 2x's a week Duration of therapy 4 more weeks Time and Billing Re-Eval Time 9 Re-Eval Billing Units 1 PHYSICIAN CERTIFICATION: I certify the specified therapy services for Josemanuel Henning are required, authorized, and reviewed every 30 days.
== END 2023-11-23 15:00 | disposition home or self-care (01) ==
LOC: OT 14:00
PROVIDERS: Visit Provider Orthopaedic Surgery
DX: M25.512 Pain in left shoulder (principal); S46.912D Strain of unspecified muscle, fascia and tendon at shoulder and upper arm level, left arm, subsequent encounter
CPT/HCPCS: 97010; 97014; 97110; 97140; 97164; 97166; G0283

== ENCOUNTER 2024-11-24 15:13 | Emergency (ER) | payer MEDICAID, SELFPAY ==
--- NOTE | 2024-11-24 15:23 | XR_ITS ---
PROCEDURE INFORMATION: Exam: XR Left Shoulder Exam date and time: 11/24/2024 3:16 PM Age: 19 years old Clinical indication: Pain; Shoulder; Left; Additional info: Crush injury L clav and shoulder TECHNIQUE: Imaging protocol: Radiologic exam of the left shoulder. Views: 2 or more views. COMPARISON: MR SHOULDER LT WO CON 08/11/2023 2:07 PM FINDINGS: Bones/joints: There is no evidence of acute fracture.There is no evidence of malalignment or dislocation. Soft tissues: Normal. IMPRESSION: There is no evidence of acute fracture.There is no evidence of malalignment or dislocation.
--- NOTE | 2024-11-24 15:23 | XR_ITS ---
PROCEDURE INFORMATION: Exam: XR Left Clavicle, Complete Exam date and time: 11/24/2024 3:17 PM Age: 19 years old Clinical indication: Pain; Shoulder; Left; Additional info: Crush injury L clavicle and shoulder TECHNIQUE: Imaging protocol: Radiologic exam of the left clavicle. Complete exam. Views: Any number of views. COMPARISON: CR XR SHOULDER LT MIN 2V 11/24/2024 3:16 PM FINDINGS: Bones/joints: There is no evidence of acute fracture.There is no evidence of malalignment or dislocation. Soft tissues: Normal. IMPRESSION: There is no evidence of acute fracture.There is no evidence of malalignment or dislocation.
[2024-11-24 15:24] VITALS: BP 136/85; PULSE 83; O2SAT 99
[2024-11-24 15:25] VITALS: BP 136/85; PULSE 75; RESP 16; TEMP 36.9; O2SAT 99; BMI 23.5
[2024-11-24] MEDS: LIDOCAINE 5% TRANSDERMAL PATCH 1 EACH TD (15:29)
--- OUTSIDE RECORDS SUMMARY | 2024-11-24 15:29 | XMS_ITS | Clinical Summary ---
Author Organization Healthcare Address [address] [place] [address] Care Team Providers Care Plastic Parts Fabricator Trimmer Name Role Phone Ozzie Vogel MD Primary Care Provider [phone] Family History Medical History Relation Name Comments ADD / ADHD Cousin ADD / ADHD Sister Relation Name Status Comments Cousin Sister Social History Tobacco Use Types Packs/Day Years Used Date Smoking Tobacco: Passive Smo ke Exposure - Never Smoker Sex and Gender Information Value Date Recorded Sex Assigned at Not on file Legal Sex Male 8:38 PM EDT Gender Identity Not on file Sexual Orientation Not on file Last Filed Vital Signs Vital Sign Reading Time Taken Comments Blood Pressure - - Pulse - - Temperature - - Respiratory Rate - - Oxygen Saturation - - Inhaled Oxygen Concentration - - Weight 31.6 kg (69 lb 9.6 oz) 09/14/2016 1:40 PM EDT Height 134.6 cm (4' 5 ) 09/14/2016 1:40 PM EDT Body Mass Index 17.42 09/14/2016 1:40 PM EDT Plan of Treatment Health Maintenance Due Date Last Done Comments [facility]-Depression Screening 2003 [facility]-Infant/Child/Adol SDOH Screenings 2003 [facility]-Varicella Vaccines (1 of 2 - 13+ 2-dose series) 2016 HPV Vaccines (1 - Male 3-dos e series) 2018 [facility]- SDOH Screenings 2021 [facility]-Adult SDOH Screenings 2021 [facility]-DTaP,Tdap,and Td Vaccine s (1 - Tdap) 2022 [facility]-Hepatitis B Vaccines (1 of 3 - 19+ 3-dose series) 2022 [id number] Vaccine (1 - 20 24-25 season) 2024 [facility]-Influenza Vaccine ([place] Ended) 2025 [facility]-Zoster Vaccines (1 of 2) 2053 [facility]-HIB Vaccines Aged Out No longer e ligible based on patient's age to complete this topic [facility]-Hepatitis A Vaccines Aged Out No longer eligible based on patient's age to complete this topic [facility]-IPV Vaccines Aged Out No longer e ligible based on patient's age to complete this topic [facility]-Pneumococcal Vaccine: Pediatrics (0 to 5 Years) and At-Risk Patients (6 to 49 Years) Aged Out No long er eligible based on patient's age to complete this topic [facility]-Rotavirus Vaccines Aged Out No lo nger eligible based on patient's age to complete this topic Care Teams Plastic Parts Fabricator Trimmer Relationship Specialty Start Date End Date Ozzie Vogel MD [address] [place] [address] [id number] PCP - General 10/09/20
[2024-11-24] MEDS: ACETAMINOPHEN 500MG TAB 1000 MG PO (15:30)
[2024-11-24] MEDS: IBUPROFEN 600 MG TABLET PO (15:30)
--- NOTE | 2024-11-24 15:34 | [facility].EDGENADL ---
Discharge Plan Disposition Patient Disposition: Home, Self-Care Prescriptions Prescriptions: No Action hydroxyzine pamoate [Vistaril] 25 mg capsule 25 mg PO TID PRN (Reason: .) melatonin 1 mg tablet 5 mg PO HS PRN (Reason: Sleep) montelukast [Singulair] 10 mg tablet 5 mg PO QPM anastrozole 1 mg tablet 1 mg PO ONCE HS ciprofloxacin-dexamethasone 0.3-0.1 % drops,suspension 4 drp otic (ear) BID Qty: 7.5 1RF clonidine HCl 0.2 mg tablet 0.2 mg PO DAILY olanzapine [Zyprexa] 20 mg tablet 20 mg PO BID levocetirizine 5 mg tablet 5 mg PO DAILY Patient Comments: TAKE 1 TABLET BY MOUTH ONCE DAILY Norditropin FlexPro 30 mg/3 mL (10 mg/mL) pen injector 4 mg SQ divalproex 500 mg tablet extended release 24 hr 500 mg PO Vyvanse 40 mg capsule 40 mg PO ibuprofen [IBU] 400 mg tablet 400 mg PO Q6HP PRN (Reason: Moderate Pain) Qty: 30 0RF Referrals Follow up/Referrals: Migue Knott APRN [Primary Care Provider, Family Practice] - See instructions Activity Restrictions/Add. Instructions Additional Instructions/Restrictions: Call your family doctor to establish care for this visit to the emergency department and schedule follow-up within 48 hours to ensure improvement. If you have any worsening of your condition or any other concerning signs or symptoms, return to the emergency department or your primary care doctor for further evaluation. Take Tylenol 1000 mg every 6 hours (4 times daily) and ibuprofen 400 mg every 6 hours (4 times daily) as needed with food and water to prevent GI upset and kidney damage. Clinical Impressions Clinical Impression: Strain of cervical portion of left trapezius muscle Print Language Print Language: Occitan Discharge ED Provider: Kevin Guzman General Adult HPI General Chief complaint: Extremity Injury, Upper Stated complaint: A/O 11-230 front bumper fell on left shouder Time Seen by Provider: 11/24/24 15:18 Mode of Arrival: Ambulatory Source of Information: Patient Description of Symptoms (Recalled from ER Triage Doc. by RN): Pt states he was working on a car on 11/23/2024 when he states the car bumper pinned his shoulder to the pavement. Pt is now c/o left shoulder pain, and states it hurts to turn his head to the left. History of Present Illness HPI narrative: Please note that above description of symptoms, in this electronic medical record under categorization of recalled from ER triage doctor by RN are reflective of an initial nursing assessment, however, is not reflective of my full history and physical exam that was personally taken and clarified. Consequentially, this preceding description of symptoms, which may include the patient's categorized chief complaint in the EMR, do not reflect my personal clinical impression, and the ultimate description of history of present illness and patient stated complaints should be deferred to this section of the note. Unless stated otherwise or congruent with this section of the note, additional signs, symptoms, or incongruence should be interpreted as inaccurate with my clinical impression. Related Data Home Medications ?Medication ?Instructions ?Recorded ?Confirmed hydroxyzine pamoate 25 mg capsule 25 mg PO TID PRN . 08/15/18 01/05/24 (Vistaril) melatonin 1 mg tablet 5 mg PO HS PRN Sleep 09/06/18 01/05/24 anastrozole 1 mg tablet 1 mg PO ONCE HS . 01/10/19 01/05/24 clonidine HCl 0.2 mg tablet 0.2 mg PO DAILY . 10/07/20 01/05/24 montelukast 10 mg tablet 5 mg PO QPM . 10/07/20 01/05/24 (Singulair) olanzapine 20 mg tablet (Zyprexa) 20 mg PO BID Depression 10/07/20 01/05/24 levocetirizine 5 mg tablet 5 mg PO DAILY 05/25/22 01/05/24 somatropin 30 mg/3 mL (10 mg/mL) 4 mg SQ 05/25/22 01/05/24 subcutaneous pen injector (Norditropin FlexPro) divalproex 500 mg tablet,extended 500 mg PO 09/20/22 01/05/24 release 24 hr lisdexamfetamine 40 mg capsule 40 mg PO 09/20/22 01/05/24 (Vyvanse) Previous Rx's ?Medication ?Instructions ?Recorded ibuprofen 400 mg tablet (IBU) 400 mg PO Q6HP PRN Moderate Pain 07/12/23 #30 tabs ciprofloxacin 0.3 %-dexamethasone 4 drp otic (ear) BID #7.5 mL 01/05/24 0.1 % ear drops,suspension Allergies Allergy/AdvReac Type Severity Reaction Status Date / Time zolpidem (From Ambien) AdvReac Intermediate Hallucinati Verified 01/05/24 09:36 [facility] Disclaimer: The information contained in this section may have been updated after the patient was seen, as this information can be updated by other users. Medical History Growth hormone deficiency Tourette's ADHD (attention deficit hyperactivity disorder) Surgical History History of eye surgery Family History Other Cancer Diabetes Heart attack Hypertension Thyroid disorder Social History Smoking Status: Never smoker second hand exposure: No alcohol intake: never substance use type: denies use current occupational status: other Travel in the last 8 weeks?: None household members: family housing: house Have you lived/traveled outside [place] in past 30 days?: No Contact w/someone who lives/traveled outside [place] past 30 days?: No Exposure to someone with infectious disease in past 14 days?: No Do you have a fever (greater than 100.4 F or 38 C)?: No Have you tested positive for COVID-19?: No Exposed to someone with COVID-19 in past 14 days?: No Do you have a sore throat?: No Do you have a cough?: No Do you have any weakness?: No Do you have any diarrhea?: No Are you experiencing any unusual bleeding?: No Do you have any muscle aches/pain?: No Do you have any abdominal pain?: No Are you experiencing loss of taste or smell?: No Other Medical History Have you received the Flu Vaccine for this season: No Have you received the Pneumonia Vaccine: No ROS Obtained: Yes All systems reviewed & no additional complaints except as documented Physical Exam General General appearance: alert Head Head exam: atraumatic and normocephalic Eye Eye exam: Present normal appearance, PERRL and EOMI Neck Neck exam: Present full ROM, trachea midline and tenderness (Paraspinal muscles on the left) Respiratory Respiratory exam: Absent respiratory distress, wheezes, stridor, accessory muscle use or prolonged expiratory phase Cardiovascular Cardiovascular exam: Present other (Pulses equal symmetric in upper and lower extremities) Abdominal Exam Abdominal exam: Present soft; Absent distention, tenderness or pulsatile mass Extremities Exam Extremities exam: Present other (Tenderness essentially throughout the whole left trapezius muscle from the base of the skull down to the mid thoracic spine out to the distal insertion. Range of motion intact, but painful); Absent edema Neurological Exam Neurological exam: Present alert, oriented X3 and CN II-XII intact; Absent motor sensory deficit Skin Skin exam: Present warm and dry; Absent diaphoresis or erythema Medical Decision Making Medical Records Medical records reviewed: Yes I reviewed the patient's medical records. Screening: Per USPSTF and CDC recommendations, given the prevalence of disease in our region, it is our hospital?s policy to screen for HIV and viral Hepatitis for all patients aged 18 and over and those with ongoing risk factors. Wilian Inquiry Pt receiving controlled substance: No Wilian was queried for this patient: No Vital Signs: 11/24/24 15:24 11/24/24 15:25 Temperature 98.5 F Temperature Source Oral Pulse Rate 83 Pulse Rate [Left] 75 Respiratory Rate 16 Blood Pressure 136/85 Blood Pressure [Right Arm] 136/85 Blood Pressure Mean [Right Arm] 102 Blood Pressure Source [Right Arm] Automatic Cuff Blood Pressure Position [Right Arm] Sitting 02 Sat by Pulse Oximetry 99 99 Oxygen Delivery Method Room Air Room Air Orders (Tests/Meds): ED MEDICATIONS Discontinued Medications Generic Name Dose Route Start Last Admin Trade Name Freq PRN Reason Stop Dose Admin Acetaminophen 1,000 mg 11/24/24 15:23 11/24/24 15:30 Acetaminophen 500mg Tab PO 11/24/24 15:24 1,000 mg ONCE ONE Administration Ibuprofen 600 mg 11/24/24 15:23 11/24/24 15:30 Ibuprofen 600 Mg Tablet PO 11/24/24 15:24 600 mg ONCE ONE Administration Lidocaine 1 each 11/24/24 15:23 11/24/24 15:29 Lidocaine 5% Transdermal Patch TD 11/24/24 15:24 1 each ONCE ONE Administration ORDERS Category Date Time Status Clavicle XR left [XR clavicle LT] Stat Exams 11/24/24 15:23 Completed Shoulder XR left minimum 2 views [XR shoulder LT min 2V Exams 11/24/24 15:23 Completed ] Stat Medical Decision Narrative: 19-year-old male presenting with left shoulder pain. States that he was working on a car yesterday when he was lowering the poli. He was laying on his side when mowing the poli, was crushed between the pavement and the car under slow release of pressure from the hydraulic poli. States that it was not terrible to time. He actually finished what he was doing under the car while being squished until he laid himself out. No major trauma. Coming in with left shoulder pain. Has taken some Tylenol, it seemed to help he was able to go to bed. Came in for further evaluation because it still aching and painful. History obtained the patient. On arrival, very clinically well. No outward signs of abnormality. He is tender about his whole left trapezius muscle. No midline neck or spine tenderness. Tenderness about his left clavicle as well, but no outward signs of abnormality or deformity. Differential include sprain, strain, fracture, dislocation, among others. X-rays were obtained. Patient was given Tylenol, Motrin, lidocaine patch over most tender spot at the base of his neck on the left. Patient has no acute bony abnormality on independent interpretation of x-rays. I feel this is consistent with musculoskeletal strain, especially given the distribution. Because patient at baseline without signs or symptoms of clinical decompensation, deemed appropriate for discharge. Results were relayed to patient who voiced understanding and were agreeable to outpatient management and follow up. I discussed my clinical impression with patient and answered all questions. At this time, the evidence for any other entities in the differential is insufficient to warrant any further testing or ED observation. This was explained as well. Advisory was given that persistent or worsening symptoms require further evaluation. I confirmed the understanding of this discussion. Cyber Security Analyst disclaimer Much of this encounter note is an electronic copra processor spoken language to printed text. Electronic copra processor of the spoken language may permit errors. Although I have reviewed the note, some errors may still exist. Critical Care Critical Care Time Critical Care Time: No
[2024-11-24 16:00] VITALS: BP 135/86; PULSE 89; O2SAT 100
[2024-11-24 16:30] VITALS: BP 118/76; PULSE 68; RESP 16; TEMP 36.3; O2SAT 99
== END 2024-11-24 16:31 | disposition home or self-care (01) ==
PROVIDERS: Emergency Provider Emergency Medicine; PCP Nurse Practitioner Family
DX: S16.1XXA Strain of muscle, fascia and tendon at neck level, initial encounter (principal); M25.512 Pain in left shoulder; W23.2XXA Caught, crushed, jammed or pinched between a moving and stationary object, initial encounter
CPT/HCPCS: 73000; 73030; 99283